=== PATIENT | female | born 1945 | race Caucasian/White ===

== ENCOUNTER 2019-12-28 15:41 | Emergency (ER) | payer OTHER, BC ==
[2019-12-28 15:56] VITALS: BP 178/89; PULSE 100; TEMP 98; BMI 29.8
[2019-12-28] MEDS ORDERED: predniSONE 20 MG TABLET (UD) PO ONE (16:33)
[2019-12-28] MEDS ORDERED: FAMOTIDINE 20 MG TABLET PO ONE (16:33)
[2019-12-28] MEDS ORDERED: FAMOTIDINE 20 MG TABLET ONE (16:35)
[2019-12-28] MEDS ORDERED: predniSONE 20 MG TABLET (UD) ONE (16:35)
== END 2019-12-28 16:47 | disposition home or self-care (01) ==
LOC: FER 15:41
DX: T78.40XA Allergy, unspecified, initial encounter (principal)
CPT/HCPCS: 99283-25